=== PATIENT | female | born 1985 | race Caucasian/White ===

== ENCOUNTER 2020-06-12 05:07 | Emergency (ER) | payer OTHER ==
[~2020-06-12] VITALS: Ht 170.2 cm; Wt 63.5 kg
[2020-06-12] MEDS ORDERED: XANAX2 MG PO (05:20)
[2020-06-12] MEDS ORDERED: ALPRAZOLAM2 MG PO (05:30)
== END 2020-06-12 05:40 | disposition home or self-care (01) ==
LOC: ED 05:07
DX: F13.239 Sedative, hypnotic or anxiolytic dependence with withdrawal, unspecified (principal); F17.200 Nicotine dependence, unspecified, uncomplicated
CPT/HCPCS: 99283